=== PATIENT | female | born 1970 | race Caucasian/White ===

== ENCOUNTER 2016-12-25 12:56 | Emergency (ER) | payer SELFPAY ==
[~2016-12-25] VITALS: Ht 167.6 cm; Wt 83.0 kg
[2016-12-25 13:01] VITALS: PULSE 66; RESP 16; TEMP 98.2; O2SAT 99
--- NOTE | 2016-12-25 13:43 | PD ---
HPI Chief Complaint: Cold / Flu Symptoms Time Seen by Provider: 13:30 Travel History International Travel<30 days: No Contact w/Intl Traveler<30days: No Traveled to known affect area: No History of Present Illness HPI 46 YO F presents with PMH of COPD to the ED for evaluation of "a few weeks history" of shortness of breath, nonproductive cough, chest pain on the lateral side of both breasts, right ear pain. Chest pain is rated 7/10. Coughing and CP onset after burning debris from [place]. Ear pain rated 5/10. Gradual onset. She endorses decreased hearing in the right ear. No alleviating or exacerbating factors reported. Patient denies fever, chills, sinus congestion, rhinorrhea, sore throat, palpitations, nausea, vomiting, diaphoresis. She has been using her asthma inhaler twice a day with no improvement of symptoms. She does not have a primary care provider. PFSH Past Medical History Hx Anticoagulant Therapy: No Diabetes: No ?: Not Social History Tobacco Use: No Allergies-Medications (Allergen,Severity, Reaction): Coded Allergies: Sulfa (Sulfonamide Antibiotics) (Verified Allergy, Severe, RASH, 12/25/16) Reported Meds & Prescriptions Reported Meds & Active Scripts Active Proair Hfa 8.5 GM Inh (Albuterol Sulfate) 90 Mcg/Act Aer 2 Puff INH Q4-6H PRN 108 mcg/actuation Azithromycin 250 Mg Tab 250 Mg PO DIRECTED Take 2 tabs (500 mg) on day 1 then 1 tab daily x 4 days. Prednisone 20 Mg Tab 40 Mg PO DAILY 5 Days Take 40 mg (2 tablets) daily for 5 days Review of Systems Except as stated in HPI: all other systems reviewed are Neg Physical Exam Narrative GENERAL: Well-nourished, well-developed white female in no acute distress. SKIN: Warm and dry. HEAD: Normocephalic. Atraumatic. EYES: No scleral icterus. No injection or drainage. PERRLA. EOMI. ENT: Hard cerumen impaction in the right external canal. Left tympanic membranes pearly leong, no loss of landmarks. Nasal mucosa is moist. Oropharynx without erythema, edema or exudate. NECK: Supple, trachea midline. No JVD or lymphadenopathy. CARDIOVASCULAR: Regular rate and rhythm without murmurs, gallops, or rubs. CHEST: Tender on the bilateral lateral aspects of the rib cage. No deformity. No crepitus. RESPIRATORY: Breath sounds clear and equal bilaterally. No accessory muscle use. GASTROINTESTINAL: Abdomen soft, non-tender, nondistended. + Bowel sounds MUSCULOSKELETAL: No cyanosis, or edema. Patient is observed to walk with a normal gait. Moves easily from standing to sitting. BACK: Nontender without obvious deformity. No CVA tenderness. Data Data Last Documented VS Vital Signs Date Time Temp Pulse Resp B/P (MAP) Pulse Ox O2 Delivery O2 Flow Rate FiO2 12/25/16 13:01 98.2 66 16 99 Orders Orders Influenzae A/B Antigen (12/25/16 13:08) Chest, Single Ap (12/25/16 ) Albuterol-Ipratropium Neb (Duoneb Neb) (12/25/16 14:45) Dexamethasone Inj (Decadron Inj) (12/25/16 14:45) Ed Discharge Order (12/25/16 15:42) MDM Medical Decision Making Medical Screen Exam Complete: Yes Emergency Medical Condition: Yes Differential Diagnosis Asthma exacerbation versus influenza versus pneumonia versus COPD exacerbation versus otitis externa versus otitis media versus viral syndrome versus musculoskeletal pain versus pleuritic pain versus other Narrative Course 46 YO F presents with PMH of COPD to the ED for evaluation of "a few weeks history" of shortness of breath, nonproductive cough, chest pain on the lateral side of both breasts, right ear pain. Chest pain is rated 7/10. Coughing and CP onset after burning debris from [place]. Ear pain rated 5/10. Gradual onset. She endorses decreased hearing in the right ear. No alleviating or exacerbating factors reported. Patient denies fever, chills, sinus congestion, rhinorrhea, sore throat, palpitations, nausea, vomiting, diaphoresis. Vitals reviewed. Physical exam reveals a very well-appearing white female in no acute distress. She does have tenderness to palpation of the lateral aspects of the rib cage bilaterally. Chest is CTA B. She has a cerumen impaction in the right ear. His presentation is not consistent with any cardiac presentation. I suspect her chest pain is pleurisy due to her cough or possibly musculoskeletal pain due to clearing debris. Irrigation of the right ear was performed. Please see my procedure note for details. Patient was administered a single DuoNeb breathing treatment. X-ray of the chest is normal per radiology read. She is administer 10 mg IM steroids. She is prescribed a 5 day course of steroids, Z-Micha and her pro-air inhaler was refilled. She is instructed take the medication as prescribed, return to the ED for worsening symptoms, follow up with the [place] [facility]. She indicated understanding of the instructions and is agreeable to the care plan. She is stable and discharged home. Procedures Procedure Narrative IRRIGATION OF CERUMEN IMPACTION: A 50:50 mix of peroxide and warm water was used to irrigate the external canal of the left ear. A 1 cm mass of cerumen was irrigated from the ear. Patient reported instantaneous improvement of her hearing and relief of her pain. She tolerated the procedure well. Diagnosis Primary Impression: COPD exacerbation Additional Impressions: Pleurisy Impacted cerumen, right ear Referrals: [facility] Patient Instructions: General Instructions, Nutrition Guidelines for People with COPD (ED), Pleurisy (ED) Additional Instructions: Rest, hydrate. Take medications as prescribed. Follow-up with the [place] [facility] as discussed. Return to ED for worsening symptoms or any urgent or emergent medical condition. Med/Other Pt SpecificInfo: Prescription(s) given Scripts Albuterol 8.5 GM Inh (Proair Hfa 8.5 GM Inh) 90 Mcg/Act Aer 2 PUFF INH Q4-6H Y for SHORTNESS OF BREATH, #1 INHALER 0 Refills 108 mcg/actuation Prov: Mihaela Martinez MD 12/25/16 Azithromycin (Azithromycin) 250 Mg Tab 250 MG PO DIRECTED for Infection, #6 TAB 0 Refills Take 2 tabs (500 mg) on day 1 then 1 tab daily x 4 days. Prov: Mihaela Martinez MD 12/25/16 Prednisone (Prednisone) 20 Mg Tab 40 MG PO DAILY for 5 Days, #10 TAB 0 Refills Take 40 mg (2 tablets) daily for 5 days Prov: Mihaela Martinez MD 12/25/16 Disposition: 01 DISCHARGE HOME Condition: Stable Joanne Dunn Dec 25, 2016 13:43
--- NOTE | 2016-12-25 14:33 | RADRPT ---
EXAM DATE/TIME: 12/25/2016 13:57 [facility] COMPARISON: No previous studies available for comparison. INDICATIONS : Cough and short of breath for several days. MEDICAL HISTORY : Chronic obstructive pulmonary disease. Carcinoma, basal cell. SURGICAL HISTORY : Tubal ligation. ENCOUNTER: Initial ACUITY: 4 - 6 days PAIN SCORE: 2/10 LOCATION: Bilateral chest FINDINGS: A single view of the chest demonstrates the lungs to be symmetrically aerated without evidence of mas s, infiltrate or effusion. The cardiomediastinal contours are unremarkable. Osseous structures are intact. CONCLUSION: Normal examination. Harvey Hartley MD on December 25, 2016 at 14:27 Board Certified Radiologist. This report was verified electronically.
[2016-12-25] MEDS ORDERED: DEXAMETHASONE SOD PHOS 4 MG/ML VIAL IM ONE (14:45)
[2016-12-25] MEDS ORDERED: RESP: ALBUTEROL 2.5 MG/IPRATROPIUM 0.5 MG NEB (SCH) INH ONE (14:45)
[2016-12-25] MEDS ORDERED: ALBUAER3 INH (15:15)
[2016-12-25] MEDS ORDERED: PRED20 PO (15:15)
[2016-12-25] MEDS ORDERED: AZIT250T3 PO (15:15)
== END 2016-12-25 15:50 | disposition home or self-care (01) ==
LOC: PHEFT 12:56
DX: J44.1 Chronic obstructive pulmonary disease with (acute) exacerbation (principal); R09.1 Pleurisy; H61.21 Impacted cerumen, right ear; R07.89 Other chest pain; Z87.09 Personal history of other diseases of the respiratory system
CPT/HCPCS: 71010; 87804; 94664; 96372; 99284; J1100

== ENCOUNTER 2017-07-31 18:28 | Emergency (ER) | END 2017-07-31 20:42 | disposition home or self-care (01) | DX: J44.1 Chronic obstructive pulmonary disease with (acute) exacerbation (principal); R07.89 Other chest pain | CPT/HCPCS: 71045; 80048; 84484; 85025; 93005; 94664; 99285; J7512; J7613 ==